=== PATIENT | male | born 1975 | race Caucasian/White ===

== ENCOUNTER 2019-05-29 10:36 | Emergency (ER) | payer SELFPAY ==
[~2019-05-29] VITALS: Ht 162.6 cm; Wt 63.5 kg
[2019-05-29 10:47] VITALS: BP 147/88
--- NOTE | 2019-05-29 11:05 | NUR ---
44 Y/O M PRESENTS TO ER C/O BURNING SENSATION TO HEAD. PER PT HE HAD BRAIN SURGERY TO REMOVE A TUMOR 5 MONTHS AGO. DENIES TRAUMA OR INJURY. DENIES N/V. PT HAS 2 SCAB WOUNDS NOTED TO RIGHT SIDE OF HEAD WITH 1/2 CM OF ERYTHEMA. PAIN LEVEL 8/10, BURNING SENSATION. HOB ELEVATED, BED IN LOWEST POSITION, BED RAIL UP X1. ERMD AT BEDSIDE ALLERGIES: NKA MED HX: DM
[2019-05-29] MEDS ORDERED: ACETAMINOPHEN 325 MG TAB PO ONE (11:10)
[2019-05-29 11:16] VITALS: BP 147/88
--- NOTE | 2019-05-29 11:16 | NUR ---
Patient discharged with v/s stable. Written and verbal after care instructions given and explained. Pt encouraged to follow up with PCP in 2 days. Pt was instructed to apply bacitracin to area 3 times a day. Patient alert, oriented and verbalized understanding of instructions. Ambulatory with steady gait. All questions addressed prior to discharge. ID band removed. Patient advised to follow up with PMD. Rx of BACITRACIN 500 UNITS WAS given. Patient educated on indication of medication including possible reaction and side effects. Opportunity to ask questions provided and answered.
== END 2019-05-29 11:06 | disposition home or self-care (01) ==
LOC: MED 10:36
DX: T81.49XA Infection following a procedure, other surgical site, initial encounter (principal); E11.8 Type 2 diabetes mellitus with unspecified complications
CPT/HCPCS: 99283

== ENCOUNTER 2019-06-11 05:07 | Inpatient (IN) | payer MEDICAID ==
[~2019-06-11] VITALS: Ht 162.6 cm; Wt 86.2 kg
[2019-06-11 05:10] VITALS: BP 145/90
--- NOTE | 2019-06-11 05:13 | NUR ---
44 Y/O M PRESENTS TO ED WITH C/O SUDDNE ONSET EPIGASTRIC PAIN X1 HOUR DIRECTOR FUNDRAISING. +NAUSEA. PT REPORTS HAVING SIMILAR PAIN IN THE PAST AND WAS TOLD BY HIS PCP TO COME TO THE ER IF THESE SYMPTOMS OCCUR AGAIN BECAUSE THE PAIN IS RELATED TO HIS DIABETES. PT STATES HE HAS NOT HAD METFORMIN IN 2 MONTHS. 9/10 SHARP AND CONSTANT PAIN, NON-RADIATING. +EPIGASTRIC TENDERNESS. BOWELS PRESENT [id number]. BEDRAIL X1 UP. FAMILY AT BEDSIDE. WILL CONTINUE TO MONITOR.
--- NOTE | 2019-06-11 05:13 | NUR ---
PT TAKEN TO BED 8
[2019-06-11] MEDS ORDERED: DICYCLOMINE HCL LIQUID 20 MG, ALUMINUM HYD/MAG/SIMETHICONE 30 ML, LIDOCAINE VISCOUS 2% ... PO ONE ×3 (05:25)
--- NOTE | 2019-06-11 05:35 | NUR ---
BLOOD DRAWN AND TAKEN TO LAB. HEMODIALYSIS CHARGE NURSE STATED TO LEAVE LABS ON THE COUNTER.
[2019-06-11 05:45] LABS: BASOPHILS # (AUTO) 0.1 K/uL (0.00-0.22); BASOPHILS % (AUTO) 0.9 % (0.0-2.0); EOSINOPHILS # (AUTO) 0.2 K/uL (0-0.4); EOSINOPHILS % (AUTO) 2.7 % (0.0-4.0); HEMOGLOBIN 17.1 g/dL (12.0-18.0); LYMPHOCYTES # (AUTO) 2.1 K/uL (2.0-11.5); LYMPHOCYTES % (AUTO) 34.4 % (20.5-51.1); MONOCYTES # (AUTO) 0.4 K/uL (0.8-1.0); MONOCYTES % (AUTO) 7.4 % (1.7-9.3); NEUTROPHILS # (AUTO) 3.3 K/uL (1.8-7.7); NEUTROPHILS % (AUTO) 54.6 % (42.2-75.2); PLATELET COUNT (AUTO) 171 K/uL (140-450); RED BLOOD CELL COUNT(AUTO) 5.41 MIL/uL (4.20-6.10)
--- NOTE | 2019-06-11 05:45 | NUR ---
PT REPORTS HAVING LAPROSCOPIC PANCREATECTOMY X1 YR AGO AND A BRAIN TUMOR REMOVAL X6 MONTHS AGO. Addendum: 06/11/19 at 0602 by [facility] PT REPORTS HAVING LAPROSCOPIC CHOLECYSTECTOMY X1 YR AGO AND A BRAIN TUMOR REMOVAL X6 MONTHS AGO.
--- NOTE | 2019-06-11 06:10 | NUR ---
PT STATES UNCHANGED PAIN. ERMD MADE AWARE.
[2019-06-11] MEDS ORDERED: KETOROLAC 30 MG/ML VIAL IM ONE (06:15)
[2019-06-11] MEDS ORDERED: ONDANSETRON 4 MG ODT PO ONE (06:15)
[2019-06-11 06:22] LABS: HEMATOCRIT 51.5 % (36-52)
[2019-06-11 06:23] LABS: MEAN CORPUSCULAR HEMOGLOBIN 30 pg (27-31); MEAN CORPUSCULAR HGB CONC 34 g/dL (33-37)
[2019-06-11 06:24] LABS: MEAN CORPUSCULAR VOLUME 88.7 fL (80-94)
[2019-06-11 06:39] LABS: ANION GAP 25.6 (8-16); CARBON DIOXIDE 14.2 mmol/L (21-32); POTASSIUM 3.8 mmol/L (3.5-5.1)
[2019-06-11 06:41] LABS: TOTAL BILIRUBIN 0.8 mg/dL (0.0-1.0)
[2019-06-11 06:42] LABS: ALBUMIN 3.8 g/dL (3.4-5.0)
[2019-06-11 06:49] LABS: CREATININE 0.5 mg/dL (0.7-1.3)
[2019-06-11] MEDS ORDERED: NACL 0.9% 2,000 ML IV ONE (07:00)
[2019-06-11] MEDS ORDERED: MORPHINE SULFATE 4 MG/ML SYR IVP ONE (07:00)
[2019-06-11] MEDS ORDERED: ONDANSETRON 4 MG/2 ML VIAL IVP ONE (07:00)
--- NOTE | 2019-06-11 07:02 | NUR ---
RT AT BEDSIDE FOR ABG
--- NOTE | 2019-06-11 07:10 | NUR ---
BEDSIDE REPORT GIVEN TO ALCIRA/CHUCK NERI. TRANSFER OF CARE AT THIS TIME.
--- NOTE | 2019-06-11 07:14 | NUR ---
MORPHINE AND ZOFRAN ADMINISTERED IVP
--- NOTE | 2019-06-11 07:19 | NUR ---
PT PLACED ON AGRICULTURE MECHANIC, VITAL SIGNS STABLE.
--- NOTE | 2019-06-11 07:19 | NUR ---
PER PT WITH MEDICAL HX OF DM, HIGH CHOLESTEROL AND PANCREATITIS
--- NOTE | 2019-06-11 07:26 | NUR ---
MORNING V/S PERFORMED AND DOCUMENTED.
[2019-06-11] MEDS ORDERED: METF500T2 PO ×2 (07:35→08:08)
--- NOTE | 2019-06-11 07:36 | NUR ---
PER PATIENT STOPPED TAKING METFORMIN FOR DM DUE TO MEDICAL INSURANCE
--- NOTE | 2019-06-11 07:41 | NUR ---
REASSESSED ALL MEDICATIONS ON EMAR, PT HAD NO NADR.
--- NOTE | 2019-06-11 08:15 | NUR ---
RESIDENTS AT BEDSIDE
[2019-06-11] MEDS: NACL 0.9% 1,000 ML IV SCH ×3 (08:26→22:27)
[2019-06-11] MEDS ORDERED: DOCUSATE SODIUM 100 MG GELCAP PO PRN (08:30)
[2019-06-11] MEDS ORDERED: HYDROcodone/APAP 5/325 MG 1 TAB TAB PO PRN (08:30)
[2019-06-11] MEDS ORDERED: ACETAMINOPHEN 325 MG TAB PO PRN (08:30)
[2019-06-11] MEDS ORDERED: LORazepam 2 MG/ML VIAL IM/IVP PRN (08:30)
[2019-06-11] MEDS ORDERED: ONDANSETRON 4 MG/2 ML VIAL IM/IVP PRN (08:30)
[2019-06-11 08:40] VITALS: BP 94/50
--- NOTE | 2019-06-11 08:40 | NUR ---
PATIENT WAS BROUGHT TO THE UNIT AT 0840, REPORT RECEIVED FROM ER NURSE. PATIENT IS IN STABLE CONDITION. ORIENTED TO THE UNIT. BED ALARM ACTIVE, CALL LIGHT IN PLACE. SKIN INTACT, OBSERVABLE CHEST RISE AND FALL. WILL CONTINUE TO MONITOR.
--- NOTE | 2019-06-11 08:50 | NUR ---
Patient will be admitted to care of [facility]. Admited to [facility]. Will go to room 125A. Belongings list completed. Report to MELISSA WOODS , NICOLE WOODS.
[2019-06-11 10:16] LABS: PROTHROMBIN TIME 9.2 secs (10.8-13.4)
[2019-06-11] MEDS ORDERED: PANTOPRAZOLE 40 MG INJ VIAL IVP SCH (10:45)
--- NOTE | 2019-06-11 11:38 | NUR ---
DISCHARGE PLANNIN44 YEAR OLD MALE PATIENT FROM HOME, CAME IN DUE TO EPIGASTRIC PAIN. PAST MEDICAL HISTORY INCLUDE PANCREATITIS, DIABETES, HIGH CHOLESTEROL AND BRAIN TUMOR S/P CRANIOTOMY. INITIAL DIAGNOSIS OF ACUTE PANCREATITIS. LIPASE 4519 ON ADMISSION. CXR SHOWED PROBABLE GRANULOMA OF THE RIGHT LUNG BASE. ON PROTONIX IV. ON ROOM AIR. DC PLAN PENDING ON PATIENT'S RESPONSE TO TREATMENT.
--- NOTE | 2019-06-11 12:09 | NUR ---
PT COMPLAINED OF NAUSEA. ADMINISTERED ZOFRAN.
--- NOTE | 2019-06-11 13:00 | NUR ---
PATIENT IS RESTING IN BED, AMBULATING OCCASIONALLY TO THE BATHROOM. IV INTACT, NS RUNNING AT 125 ML/HR. WILL CONTINUE TO MONITOR.
--- NOTE | 2019-06-11 13:41 | NUR ---
Phlebotomy Director Assessment/Discharge Plan: Name: Reena Wilks Home Relationship: sister Pre-Admission Living Arrangements: Lives with Other Other: his children and roommates Prior ADL Independent Current Home Health Name/Tel: N/A Current DME/02 Name/Tel: no blood glucose monitor Current Hospice Name/Tel: N/A Current Dialysis Name/Tel: N/A Healthcare Decision Maker: Patient Information Taught: Community Resources Person Taught: Patient Teaching Tools: Community Resources Verbal Factors Affecting Learning: None Participation Level: Active Evaluation: Gestures Understanding Verbalizes Understanding Educator: JIMBO Landers Discipline: Case Mgt/Social Svcs Tentative Discharge Plan Summary: Patient is a 44 year old male, admitte for acute pancreatitis. I met with patient at bedside. Patient alert and oriented x4. Patient speaks Sami. Patient lives at home with his children and roommates and plans to return home upon discharge. Patient does not have a pcp at this time. He moved to [place] from [place] 4 months ago. I provided patient with a list of low cost clinics. He denied alcohol/substance abuse. He also denied hx of mental health. Phlebotomy Director and/or Strap Maker will follow up as needed. Signature: JIMBO Landers Date: Jun 11, 2019
[2019-06-11] MEDS: KETOROLAC 30 MG/ML VIAL IVP PRN ×2 (15:07→21:29)
--- NOTE | 2019-06-11 15:10 | NUR ---
PAIN MEDICATION GIVEN FOR ABDOMINAL PAIN, PATIENT TOLERATED WELL. RESTING IN BED WITH EYES CLOSED. OBSERVED CHEST RISE AND FALL. WILL CONTINUE TO MONITOR.
[2019-06-11 16:00] VITALS: BP 122/81
--- NOTE | 2019-06-11 17:08 | NUR ---
RESTING IN BED, NO COMPLAINTS OF PAIN, N/S RUNNING AT 125 ML/HR. WILL CONTINUE TO MONITOR.
--- NOTE | 2019-06-11 19:31 | NUR ---
ENDORSED PT TO PM RN PT APPEARS STABLE AND IN NO APPARENT DISTRESS. ALL SAFETY MEASURES ARE IN PLACE
--- NOTE | 2019-06-11 19:32 | NUR ---
REPORT RECEIVED FROM AM NURSE AT BEDSIDE. PT IN STABLE CONDITION. AAOX4. INTRODUCED SELF TO PT. BOARD UPDATED. NO COMPLAINTS OF PAIN. NO SOB. AFEBRILE. PT IS AMBULATORY. PT IS [place]ORE[place] SPEAKING. IV SITE L AC 18G RUNNING NS@150ML/HR PATENT AND INTACT. SKIN WARM, DRY, AND INTACT WITH NO OPEN WOUNDS. BED LOCKED IN LOW POSITION. CALL WOOD WITHIN REACH. SAFETY PRECAUTION IN PLACE. ALL NEEDS MET AT THIS TIME.
[2019-06-11 20:26] LABS: MAGNESIUM 1.9 mg/dL (1.8-2.4)
--- NOTE | 2019-06-11 21:29 | NUR ---
TORADOL GIVEN FOR 7/10 ABDOMINAL PAIN. PT TOLERATED WELL.
--- NOTE | 2019-06-11 23:10 | NUR ---
PT SLEEPING COMFORTABLY IN BED. NO S/S OF DISTRESS NOTED. WILL CONTINUE TO MONITOR.
[2019-06-11 23:36] LABS: APPEARANCE,URINE CLEAR (CLEAR); BILIRUBIN,URINE NEGATIVE (NEGATIVE); BLOOD, URINE NEGATIVE (NEGATIVE); COLOR,URINE YELLOW (YELLOW); LEUKOCYTE ESTERASE ,URINE NEGATIVE (NEGATIVE); NITRITE, URINE NEGATIVE (NEGATIVE); UGLUCOSE TRACE (NEGATIVE)
[2019-06-11 23:48] LABS: RBC,URINE 0-5 /HPF (0-5); WBC,URINE 0-5 /HPF (0-5)
[2019-06-11 23:59] LABS: BARBITURATE, URINE NEG. ng/ml (NEG <=200); BENZODIAZEPINE, URINE NEG. ng/mL (NEG <=200); CANNABINOID, URINE NEG. ng/mL (NEG <=50); COCAINE, URINE NEG. ng/mL (NEG <=300); OPIATE, URINE NEG. ng/mL (NEG <=2000); PHENCYCLIDINE SCREEN,URINE NEG. ng/mL (NEG <=25)
[2019-06-12] VITALS: BP 125/75
--- NOTE | 2019-06-12 02:25 | NUR ---
PT SLEEPING COMFORTABLY BUT AROUSABLE. NO S/S OF DISTRESS NOTED. NO COMPLAINTS OF PAIN. NO SOB. AFEBRILE. WILL CONTINUE TO MONITOR.
[2019-06-12] MEDS: NACL 0.9% 1,000 ML IV SCH ×3 (04:16→18:59)
--- NOTE | 2019-06-12 04:20 | NUR ---
PT SLEEPING COMFORTABLY BUT AROUSABLE. NO S/S OF DISTRESS NOTED. RESPIRATIONS EVEN, UNLABORED, AND WNL. WILL CONTINUE TO MONITOR.
--- NOTE | 2019-06-12 06:05 | NUR ---
PT SLEEPING COMFORTABLY BUT AROUSABLE. NO S/S OF DISTRESS NOTED. NO COMPLAINTS OF PAIN. NO SOB. AFEBRILE. WILL CONTINUE TO MONITOR.
[2019-06-12 06:31] LABS: ANION GAP 12.8 (8-16); CARBON DIOXIDE 26.5 mmol/L (21-32); CREATININE 0.7 mg/dL (0.7-1.3); POTASSIUM 3.3 mmol/L (3.5-5.1)
[2019-06-12 06:49] LABS: BASOPHILS % (AUTO) 0.3 % (0.0-2.0); EOSINOPHILS # (AUTO) 0.1 K/uL (0-0.4); EOSINOPHILS % (AUTO) 1.2 % (0.0-4.0); HEMATOCRIT 42.2 % (36-52); HEMOGLOBIN 14.4 g/dL (12.0-18.0); LYMPHOCYTES % (AUTO) 10.3 % (20.5-51.1); MEAN CORPUSCULAR HEMOGLOBIN 30 pg (27-31); MEAN CORPUSCULAR HGB CONC 34 g/dL (33-37); MEAN CORPUSCULAR VOLUME 87.6 fL (80-94); MONOCYTES # (AUTO) 0.6 K/uL (0.8-1.0); MONOCYTES % (AUTO) 6.5 % (1.7-9.3); NEUTROPHILS # (AUTO) 7.6 K/uL (1.8-7.7); NEUTROPHILS % (AUTO) 81.7 % (42.2-75.2); PLATELET COUNT (AUTO) 146 K/uL (140-450); RED BLOOD CELL COUNT(AUTO) 4.81 MIL/uL (4.20-6.10); RED CELL DISTRIBUTION WIDTH 13.9 % (11.6-13.7); WHITE BLOOD COUNT (AUTO) 9.3 K/uL (4.8-10.8)
--- NOTE | 2019-06-12 06:50 | NUR ---
PT SLEEPING COMFORTABLY BUT AROUSABLE. PT IN STABLE CONDITION.
--- NOTE | 2019-06-12 07:30 | NUR ---
RECEIVED PT FROM NIGHT NURSE. AAOX4, NO DISTRESS NOTED, PT DENIES PAIN AT THIS TIME. RESPIRATIONS EVEN AND UNLABORED ON ROOM AIR, CLEAR BREATH SOUNDS. IV IN PLACE PATENT AND ASYMPTOMATIC INFUSING PER ORDER IN L AC 18G. SKIN INTACT. AMBULATORY. NPO EXCEPT MEDS. SAFETY MEASURES IN PLACE. CALL LIGHT WITHIN REACH. BED IN LOW POSITION. WILL CONTINUE TO MONITOR.
[2019-06-12 08:00] VITALS: BP 112/70
[2019-06-12] MEDS ORDERED: POTASSIUM CHLORIDE 40 MEQ, LIDOCAINE MPF 1% 25 MG in NACL 0.9% 250 ML IV SCH (08:00)
--- NOTE | 2019-06-12 08:22 | NUR ---
PATIENT HAS BEEN SCREENED AND CATEGORIZED MODERATE NUTRITION RISK. PATIENT WILL BE SEEN WITHIN 3-5 DAYS OF ADMISSION. 06/13/19 06/15/[address]
[2019-06-12] MEDS: PANTOPRAZOLE 40 MG INJ VIAL IVP SCH (09:12)
--- NOTE | 2019-06-12 09:22 | NUR ---
MEDICATIONS ADMINISTERED PER ORDER. PT TOLERATED WELL. NO DISTRESS NOTED. PT DENIES PAIN AT THIS TIME. SAFETY MEASURES IN PLACE. CALL LIGHT WITHIN REACH. WILL CONTINUE TO MONITOR.
[2019-06-12 11:40] LABS: THYROID STIMULATING HORMONE 0.9 uIU/mL (0.34-3.74)
--- NOTE | 2019-06-12 12:07 | NUR ---
PT EATING LUNCH, CLEAR LIQUID DIET. NO DISTRESS NOTED. WILL CONTINUE TO MONITOR. SAFETY MEASURES IN PLACE.
--- NOTE | 2019-06-12 14:18 | NUR ---
PT IN BED SLEEPING. NO DISTRESS NOTED. CALL LIGHT WITHIN REACH. WILL CONTINUE TO MONITOR.
[2019-06-12 16:00] VITALS: BP 119/80
--- NOTE | 2019-06-12 17:02 | NUR ---
PT IN BED ASLEEP. NO DISTRESS NOTED. BED IN LOW POSITION. CALL LIGHT WITHIN REACH. WILL CONTINUE TO MONITOR.
--- NOTE | 2019-06-12 19:10 | NUR ---
REPORT GIVEN TO NIGHT NURSE FOR CONTINUITY OF CARE.
--- NOTE | 2019-06-12 19:11 | NUR ---
REPORT RECEIVED FROM AM NURSE AT BEDSIDE. PT IN STABLE CONDITION. AAOX4. INTRODUCED SELF TO PT. BOARD UPDATED. NO COMPLAINTS OF PAIN. NO SOB.A FEBRILE. PT IS AMBULATORY. PT IS MALAWIAN SPEAKING. IV SITE L AC 18G RUNNING NS@150ML/HR PATENT AND INTACT. SKIN WARM, DRY, AND INTACT WITH NO OPEN WOUNDS. BED LOCKED IN LOW POSITION. CALL WOOD WITHIN REACH. SAFETY PRECAUTION IN PLACE. ALL NEEDS MET AT THIS TIME.
--- NOTE | 2019-06-12 20:15 | NUR ---
LIPITOR GIVEN PO. PT TOLERATED WELL.
[2019-06-12] MEDS ORDERED: ATORVASTATIN 20 MG TAB PO SCH (21:00)
--- NOTE | 2019-06-12 22:20 | NUR ---
PT SLEEPING COMFORTABLY BUT AROUSABLE. NO S/S OF DISTRESS NOTED. WILL CONTINUE TO MONITOR.
[2019-06-13] VITALS: BP 112/73
--- NOTE | 2019-06-13 00:30 | NUR ---
PT SLEEPING COMFORTABLY BUT AROUSABLE. NO S/S OF DISTRESS NOTED. RESPIRATIONS EVEN, UNLABORED, AND WNL. WILL CONTINUE TO MONITOR.
[2019-06-13] MEDS: NACL 0.9% 1,000 ML IV SCH ×2 (02:29→09:23)
--- NOTE | 2019-06-13 02:43 | NUR ---
PT SLEEPING COMFORTABLY BUT AROUSABLE. NO S/S OF DISTRESS NOTED. NO COMPLAINTS OF PAIN. NO SOB. AFEBRILE. WILL CONTINUE TO MONITOR.
--- NOTE | 2019-06-13 04:35 | NUR ---
PT SLEEPING COMFORTABLY BUT AROUSABLE. NO S/S OF DISTRESS NOTED. WILL CONTINUE TO MONITOR.
[2019-06-13 06:02] LABS: ANION GAP 11.6 (8-16); CARBON DIOXIDE 29.2 mmol/L (21-32); CREATININE 0.8 mg/dL (0.7-1.3); POTASSIUM 3.8 mmol/L (3.5-5.1)
[2019-06-13 06:20] LABS: BASOPHILS % (AUTO) 0.4 % (0.0-2.0); EOSINOPHILS # (AUTO) 0.2 K/uL (0-0.4); EOSINOPHILS % (AUTO) 4.3 % (0.0-4.0); HEMATOCRIT 39.9 % (36-52); HEMOGLOBIN 13.4 g/dL (12.0-18.0); LYMPHOCYTES # (AUTO) 1.5 K/uL (2.0-11.5); LYMPHOCYTES % (AUTO) 27.9 % (20.5-51.1); MEAN CORPUSCULAR HEMOGLOBIN 30 pg (27-31); MEAN CORPUSCULAR HGB CONC 34 g/dL (33-37); MEAN CORPUSCULAR VOLUME 88.8 fL (80-94); MONOCYTES # (AUTO) 0.4 K/uL (0.8-1.0); MONOCYTES % (AUTO) 8.3 % (1.7-9.3); NEUTROPHILS # (AUTO) 3.2 K/uL (1.8-7.7); NEUTROPHILS % (AUTO) 59.1 % (42.2-75.2); PLATELET COUNT (AUTO) 138 K/uL (140-450); RED BLOOD CELL COUNT(AUTO) 4.49 MIL/uL (4.20-6.10); WHITE BLOOD COUNT (AUTO) 5.4 K/uL (4.8-10.8)
--- NOTE | 2019-06-13 06:40 | NUR ---
PT SLEEPING COMFORTABLY BUT AROUSABLE. PT IN STABLE CONDITION.
--- NOTE | 2019-06-13 07:10 | NUR ---
RECEIVED REPORT FROM NIGHT NURSE. PT IN BED WITH EYES CLOSED AROUSABLE TO SPEECH, AAOX4, DENIES PAIN, NO DISTRESS NOTED. RESPIRATIONS EVEN AND UNLABORED ON ROOM AIR, CLEAR BREATH SOUNDS. IV IN PLACE PATENT AND ASYMPTOMATIC IN L AC 18G INFUSING PER ORDER. SKIN INTACT. BED IN LOW POSITION, CALL LIGHT WITHIN REACH. SAFETY MEASURES IN PLACE. WILL CONTINUE TO MONITOR.
[2019-06-13] MEDS ORDERED: METF500T2 PO (08:35)
[2019-06-13] MEDS ORDERED: [UNRECOGNIZED DRUG - CODE] PO (08:35)
[2019-06-13] MEDS ORDERED: ATOR40TA40 PO (08:35)
[2019-06-13] MEDS ORDERED: NIACIN 500 MG TAB PO SCH (09:00)
[2019-06-13] MEDS: PANTOPRAZOLE 40 MG INJ VIAL IVP SCH (09:22)
--- NOTE | 2019-06-13 09:27 | NUR ---
MEDICATIONS ADMINISTERED PER ORDER. PT TOLERATED WELL. NO DISTRESS NOTED. WILL CONTINUE TO MONITOR.
[2019-06-13 09:51] VITALS: BP 131/78
[2019-06-13] MEDS ORDERED: INFLUENZA VACCINE QUAD 0.5 ML SYR IMVAC PRN (10:30)
--- NOTE | 2019-06-13 11:00 | NUR ---
PT DISCHARGED HOME AT THIS TIME. DISCHARGE, FOLLOWUP AND MEDICATION TEACHING GIVEN, PT VERBALIZE UNDERSTANDING. DISCHARGE PAPERWORK GIVEN AND SIGNED BY PT. FLU VACCINE GIVEN UPON DISCHARGE, PNA NOT APPLICABLE. IV SITE REMOVED WITH MINIMAL BLOOD LOSS AND LUMEN INTACT. ID BANDS REMOVED. RESPIRATIONS EVEN AND UNLABORED ON ROOM AIR, CLEAR BREATH SOUNDS. PT DENIES PAIN. SKIN INTACT. PT ESCORTED OFF THE UNIT ON FOOT AND LEFT IN PRIVATE VEHICLE ACCOMPANIED BY SISTER.
== END 2019-06-13 11:00 | disposition home or self-care (01) | DRG 282 ==
LOC: MED 05:07 → MMU 08:30
PROVIDERS: ADMIT General Practice; ATTEND General Practice
DX: K85.90 Acute pancreatitis without necrosis or infection, unspecified (principal); K65.9 Peritonitis, unspecified; K76.0 Fatty (change of) liver, not elsewhere classified; E87.1 Hypo-osmolality and hyponatremia; E66.9 Obesity, unspecified; E11.9 Type 2 diabetes mellitus without complications; E78.00 Pure hypercholesterolemia, unspecified; E78.5 Hyperlipidemia, unspecified; E11.65 Type 2 diabetes mellitus with hyperglycemia; E87.6 Hypokalemia; E78.1 Pure hyperglyceridemia; Z91.19 Patient's noncompliance with other medical treatment and regimen; Z68.32 Body mass index [BMI] 32.0-32.9, adult; Z90.49 Acquired absence of other specified parts of digestive tract
CPT/HCPCS: 36415; 36600; 71045; 80048; 80053; 80061; 80305; 81001; 82803; 82948; 83036; 83615; 83625; 83690; 83735; 84100; 84443; 85025; 85610; 85730; 87081; 93005; 96372; 96374; 96375; 99285; C9113; J1885; J2001; J2270; J2405; J3480; J7030; Q0092; Q0162; Q9967

== ENCOUNTER 2020-01-21 14:33 | Emergency (ER) | payer MEDICAID, OTHER ==
[~2020-01-21] VITALS: Ht 170.2 cm; Wt 81.6 kg
[~2020-01-21 14:33] MED LIST: ATOR40TA40 PO; METF500T2 PO; [UNRECOGNIZED DRUG - CODE] PO
[2020-01-21 14:41] VITALS: BP 121/76
--- NOTE | 2020-01-21 15:00 | NUR ---
PATIENT LEFT WITHOUT BEING SEEN BY DR. JHAVERI . NO FURTHER CARE PROVIDED FOR PATIENT.
== END 2020-01-21 15:00 | disposition left against medical advice (07) ==
LOC: MED 14:33
DX: M79.606 Pain in leg, unspecified (principal); E11.9 Type 2 diabetes mellitus without complications; Z79.84 Long term (current) use of oral hypoglycemic drugs; Z79.899 Other long term (current) drug therapy; Z53.21 Procedure and treatment not carried out due to patient leaving prior to being seen by health care provider

== ENCOUNTER 2020-05-22 14:18 | Emergency (ER) | payer OTHER ==
[~2020-05-22] VITALS: Ht 167.6 cm; Wt 85.7 kg
--- NOTE | 2020-05-22 14:18 | NUR ---
Troy wright in [facility] - 05/22/20 at 1422 by YURI BIBA TAKEN TO BED 5
--- NOTE | 2020-05-22 15:42 | NUR ---
PT TAKEN TO BED 11.
[2020-05-22 15:46] VITALS: BP 111/76
--- NOTE | 2020-05-22 15:49 | NUR ---
45 y/o A&OX4 male c/o Full body numbness. Pressure to chest rated 4/10. PT states he called [facility] earlier today and wa told to come to the ER to be evaluated. Sensory and motor function present in all extremities, able to ambulate. PMH: DM, HLD RX: Metformin, lisinopril, atorvastatin, glipizide. NKA
[2020-05-22] MEDS ORDERED: ASPIRIN 81 MG TAB.CHEW PO ONE (16:05)
--- NOTE | 2020-05-22 16:14 | NUR ---
EMT at bedside for Chest XR
--- NOTE | 2020-05-22 16:20 | NUR ---
XR at pt bedside.
[2020-05-22 16:21] LABS: BASOPHILS % (AUTO) 0.4 % (0.0-2.0); EOSINOPHILS # (AUTO) 0.1 K/uL (0-0.4); EOSINOPHILS % (AUTO) 1.8 % (0.0-4.0); HEMATOCRIT 42.5 % (36-52); HEMOGLOBIN 14.5 g/dL (12.0-18.0); LYMPHOCYTES # (AUTO) 2.4 K/uL (2.0-11.5); LYMPHOCYTES % (AUTO) 31.9 % (20.5-51.1); MEAN CORPUSCULAR HEMOGLOBIN 30 pg (27-31); MEAN CORPUSCULAR HGB CONC 34 g/dL (33-37); MEAN CORPUSCULAR VOLUME 87.6 fL (80-94); MONOCYTES # (AUTO) 0.6 K/uL (0.8-1.0); MONOCYTES % (AUTO) 7.9 % (1.7-9.3); NEUTROPHILS # (AUTO) 4.4 K/uL (1.8-7.7); PLATELET COUNT (AUTO) 184 K/uL (140-450); RED BLOOD CELL COUNT(AUTO) 4.85 MIL/uL (4.20-6.10); RED CELL DISTRIBUTION WIDTH 13.1 % (11.6-13.7); WHITE BLOOD COUNT (AUTO) 7.6 K/uL (4.8-10.8)
[2020-05-22 16:35] LABS: ALBUMIN 3.9 g/dL (3.4-5.0); ANION GAP 13.9 (8-16); CARBON DIOXIDE 26.5 mmol/L (21-32); CREATININE 0.8 mg/dL (0.6-1.3); POTASSIUM 3.4 mmol/L (3.5-5.1); TOTAL BILIRUBIN 0.4 mg/dL (0.0-1.0)
--- NOTE | 2020-05-22 17:29 | NUR ---
Pt repositoned for comfort, VSS, elaine continue to monitor.
[2020-05-22 18:06] VITALS: BP 116/72
--- NOTE | 2020-05-22 18:06 | NUR ---
Patient discharged with v/s stable. Written and verbal after care instructions given and explained. Patient verbalized understanding. Ambulatory with steady gait. All questions addressed prior to discharge. Advised to follow up with PMD.
== END 2020-05-22 18:06 | disposition home or self-care (01) ==
LOC: MED 14:18
DX: R07.9 Chest pain, unspecified (principal); E11.9 Type 2 diabetes mellitus without complications; E78.5 Hyperlipidemia, unspecified; I10 Essential (primary) hypertension; Z90.49 Acquired absence of other specified parts of digestive tract; Z79.899 Other long term (current) drug therapy
CPT/HCPCS: 36415; 71045; 80053; 84484; 85025; 93005; 99285; Q0092; 96361

== ENCOUNTER 2020-07-20 12:18 | Inpatient (IN) | payer OTHER ==
[~2020-07-20] VITALS: Ht 167.6 cm; Wt 80.7 kg
[2020-07-20 12:44] VITALS: BP 124/85
--- NOTE | 2020-07-20 12:48 | NUR ---
Patient ambulated to lobby with steady gait
[2020-07-20] MEDS ORDERED: DICYCLOMINE HCL LIQUID 20 MG, ALUMINUM HYD/MAG/SIMETHICONE 30 ML, LIDOCAINE VISCOUS 2% ... PO ONE ×3 (13:30)
[2020-07-20] MEDS ORDERED: DICYCLOMINE HCL LIQUID 10 MG/5 ML UDC ONE (14:15)
[2020-07-20] MEDS ORDERED: ALUMINUM HYD/MAG/SIMETHICONE 30 ML UDC ONE (14:15)
[2020-07-20] MEDS ORDERED: LIDOCAINE VISCOUS 2% 20 ML UDC ONE (14:15)
[2020-07-20 14:23] LABS: BASOPHILS # (AUTO) 0.1 K/uL (0.00-0.22); BASOPHILS % (AUTO) 0.6 % (0.0-2.0); EOSINOPHILS # (AUTO) 0.1 K/uL (0-0.4); EOSINOPHILS % (AUTO) 0.5 % (0.0-4.0); HEMATOCRIT 45.4 % (36-52); HEMOGLOBIN 16.6 g/dL (12.0-18.0); LYMPHOCYTES # (AUTO) 1.1 K/uL (2.0-11.5); LYMPHOCYTES % (AUTO) 10.1 % (20.5-51.1); MEAN CORPUSCULAR HEMOGLOBIN 32 pg (27-31); MEAN CORPUSCULAR HGB CONC 37 g/dL (33-37); MEAN CORPUSCULAR VOLUME 85.9 fL (80-94); MONOCYTES # (AUTO) 0.4 K/uL (0.8-1.0); NEUTROPHILS # (AUTO) 9.5 K/uL (1.8-7.7); NEUTROPHILS % (AUTO) 84.8 % (42.2-75.2); PLATELET COUNT (AUTO) 189 K/uL (140-450); RED BLOOD CELL COUNT(AUTO) 5.29 MIL/uL (4.20-6.10); WHITE BLOOD COUNT (AUTO) 11.2 K/uL (4.8-10.8)
[2020-07-20] MEDS ORDERED: KETOROLAC 60 MG/2 ML VIAL IM ONE (15:55)
[2020-07-20 16:25] LABS: APPEARANCE,URINE CLEAR (CLEAR); BILIRUBIN,URINE NEGATIVE (NEGATIVE); BLOOD, URINE NEGATIVE (NEGATIVE); COLOR,URINE YELLOW (YELLOW); LEUKOCYTE ESTERASE ,URINE NEGATIVE (NEGATIVE); NITRITE, URINE NEGATIVE (NEGATIVE); PH,URINE 6.5 (5.0-9.0); UGLUCOSE 3+ (NEGATIVE)
[2020-07-20] MEDS ORDERED: HYDROcodone/APAP 5/325 MG 1 TAB TAB PO ONE (17:15)
[2020-07-20] MEDS ORDERED: NACL 0.9% 1,000 ML IV ONE (18:15)
--- NOTE | 2020-07-20 20:19 | NUR ---
S/W ANGEL KRUSE TECH WHO STATED BLOOD WORK WAS SENT TO LAB [facility] DUE TO THE BLOOD BEING LIPEMIC. LISA LOVE MADE AWARE.
[2020-07-20] MEDS ORDERED: HYDROcodone/APAP 5/325 MG 1 TAB TAB ONE (20:31)
--- NOTE | 2020-07-20 21:21 | NUR ---
PT TAKEN TO CHAIR A
[2020-07-20] MEDS ORDERED: ONDANSETRON 4 MG/2 ML VIAL IVP ONE (21:50)
[2020-07-20] MEDS ORDERED: MORPHINE SULFATE 4 MG/ML SYR IVP ONE (21:50)
--- NOTE | 2020-07-20 22:23 | NUR ---
PT BLOOD REDRAWN AND TAKEN TO LAB
--- NOTE | 2020-07-20 22:40 | NUR ---
RECEIVED REPORT FROM CHUCK LIN FOR CONTINUATION OF CARE AT THIS TIME.
--- NOTE | 2020-07-20 22:40 | NUR ---
PT IS SITTING UPRIGHT IN CHAIR. VISIBLE RISE AND FALL OF CHEST NOTED. NO VISIBLE DISTRES AT THIS TIME. WILL CONTINUE TO MONITOR.
--- NOTE | 2020-07-20 22:40 | NUR ---
45 Y/O MALE C/O 8/10 SHARP ABD PAIN X1 DAY, + N/V. DENIES DIARRHEA. ABD IS TENDER TO PALPATION. PT IS MILDY DISTENDED. BOWEL SOUNDS ACTIVEX4 QUADRANTS. PT IS A/OX4. +2 PULSES THROUGHOUT. CLEAR LUNG SOUNDS THROUGHOUT. PT IS NOT IN ANY DISTRESS AT THIS TIME. PT DENIES TAKING ANY PAIN MEDICATION. PMH: DM, HTN NKA
[2020-07-20] MEDS ORDERED: ONDANSETRON 4 MG/2 ML VIAL ONE (22:53)
[2020-07-20] MEDS ORDERED: MORPHINE SULFATE 5 MG/ML VIAL ONE (22:54)
--- NOTE | 2020-07-20 23:00 | NUR ---
PROVIDED PT WITH ICE CHIPS--PER ERMD OKAY TO GIVE ICE CHIPS BUT KEEP NPO EXCEPT MEDS.
--- NOTE | 2020-07-21 00:30 | NUR ---
PT IS SITTING IN CHAIR, PT IS ASLEEP. VISIBLE RISE AND FALL OF CHEST NOTED. NO VISIBLE DISTRESS AT THIS TIME. WILL CONTINUE TO MONITOR.
--- NOTE | 2020-07-21 02:00 | NUR ---
Spoke with Apple the shoe caser at [employer] to give her a report for why the pt is here.
--- NOTE | 2020-07-21 02:45 | NUR ---
PT IS SITTING IN CHAIR IN THE HALLWAY. VISIBLE RISE AND FALL OF CHEST NOTED. IV FLUIDS RUNNING AT 80 ML/HR PER MD ORDERS. NO VISIBLE DISTRESS AT THIS TIME. WILL CONTINUE TO MONITOR.
[2020-07-21] MEDS ORDERED: HYDROcodone/APAP 5/325 MG 1 TAB TAB PO PRN (03:25)
[2020-07-21] MEDS ORDERED: KCL 20 MEQ/WATER INJ PREMIX 200 ML IV PRN (03:25)
[2020-07-21] MEDS ORDERED: MAG SULF 2000 MG/WATER PREMIX 50 ML IV PRN (03:25)
[2020-07-21] MEDS ORDERED: METOCLOPRAMIDE 10 MG/2 ML INJ VIAL IVP PRN (03:25)
[2020-07-21] MEDS ORDERED: MORPHINE SULFATE 4 MG/ML SYR IVP PRN (03:25)
[2020-07-21] MEDS ORDERED: ACETAMINOPHEN 325 MG TAB PO PRN (03:25)
[2020-07-21 03:56] LABS: BARBITURATE, URINE NEGATIVE ng/ml (NEG <=200); BENZODIAZEPINE, URINE NEGATIVE ng/mL (NEG <=200); CANNABINOID, URINE NEGATIVE ng/mL (NEG <=50); COCAINE, URINE NEGATIVE ng/mL (NEG <=300); OPIATE, URINE NEGATIVE ng/mL (NEG <=2000); PHENCYCLIDINE SCREEN,URINE NEGATIVE ng/mL (NEG <=25)
--- NOTE | 2020-07-21 04:50 | NUR ---
PT IS ASLEEP IN CHAIR IN THE HALLWAY. VISIBLE RISE AND FALL OF CHEST NOTED. IV FLUIDS RUNNING AT 80 ML/HR PER MD ORDERS. NO VISIBLE DISTRESS AT THIS TIME. WILL CONTINUE TO MONITOR.
[2020-07-21] MEDS: NACL 0.9% 1,000 ML IV SCH ×2 (04:55→15:25)
--- NOTE | 2020-07-21 06:53 | NUR ---
PATIENT HAS BEEN SCREENED AND CATEGORIZED MODERATE NUTRITION RISK. PATIENT WILL BE SEEN WITHIN 3-5 DAYS OF ADMISSION. 07/24/20 - 07/26/20 N[address] MBA, RD
--- NOTE | 2020-07-21 08:15 | NUR ---
GAVE REPORT TO CHUCK HEIN FOR TRANSFER OF CARE AT THIS TIME.
--- NOTE | 2020-07-21 08:20 | NUR ---
RECEIVED ENDORSEMENT FROM AUTOMOTIVE SERVICE TECHNICIAN, SITTING ON THE CHAIR, AWAKE, ALERT, ORIENTEDX4, BREATHING SPONTANEOUSLY AT ROOM AIR, NOT IN DISTRESS, ADMITTED A CASE OF ABDOMINAL PAIN AWAITING FOR BED IN THE MED/SURG FLOOR. WITH IV CANNULA G 20 AT RT AC ON SALINE LOCK.SAFETY MEASURES IN PLACE AND CONTINUE MONITOR
[2020-07-21 09:00] VITALS: BP 120/77
[2020-07-21] MEDS ORDERED: DOCUSATE SODIUM 100 MG GELCAP PO SCH (09:00)
--- NOTE | 2020-07-21 09:31 | NUR ---
DUE MEDICATION GIVEN
--- NOTE | 2020-07-21 11:11 | NUR ---
SOCIAL WORK NOTE: Patient's Orientation Unable To Assess Information Provided By SAM AHMADI - SISTER Comments SW WAS UNABLE TO MEET PATIENT AT BEDSIDE. SW COMPLETED ASSESSMENT WITH PATIENT'S SISTER. SW USED REFRACTORY MIXER [employer]ON [id number]. Guardian Family Member, Realtionship and Phone Number SAM RIBEIRO [phone] Healthcare Power of Plasma Processor No Does Patient Have a POLST No Identifying Problems No Social Work Triggers Is A Social Work Consult Needed No Mandate Report Filed No Explanation Of Identifying Problems PATIENT IS A 45-YEAR- OLD MALE ADMITTED FOR ABDOMINAL PAIN. PATIENT HAS PMHX OF DIABETES AND HEART DISEASE. Admitted From Home Pre-Admission Level Of Functioning Status Independent/Ambulatory Prior Resources/Services Used In Last 12 Months No Prior Resources Used Prior DME No Prior DME Used Dialysis Comments N/A Living Situation Apartment Lives With Family Patient Had Caregiver No Home Support No Caregiver Issues Financial Issues No Known Financial Issue Referral To The Financial Counselor Needed No Factors/Needs No D/C Needs Identified Pt/Rep Participated In Discharge Plan Yes Patient/Family Agress With Discharge Plan Yes Discharge Plan Comments TENTATIVE DISCHARGE PLAN IS FOR PATIENT TO RETURN HOME. DC Plan Status Initiated
--- NOTE | 2020-07-21 12:11 | NUR ---
STILL SITTING ON CHAIR, NOT IN DISTRESS NOTED
[2020-07-21 13:00] VITALS: BP 122/75
--- NOTE | 2020-07-21 15:31 | NUR ---
STILL NPO EXCEPT MEDS, IV FLUID 0.9% NS AT 80ML/HOUR STARTED AT RT AC, G20 IV CANNULA, PATENT
[2020-07-21 17:00] VITALS: BP 106/77
--- NOTE | 2020-07-21 17:01 | NUR ---
VITAL SIGNS TAKEN AND RECORDED, STABLE
--- NOTE | 2020-07-21 18:45 | NUR ---
DR. CABRAL MADE ROUNDS, ORDERED TO GIVE SOME FOOD FOR THE PATIENT, IF TOLERATED POSSIBLE DISCHARGE TONIGHT. PUDDING AND JELLO OFFERED, ABLE TO EAT WITHOUT VOMITING, DENIES ABDOMINAL PAIN NOTED
--- NOTE | 2020-07-21 19:25 | NUR ---
ENDORSED TO FLATBED PRESS OPERATOR IN STABLE CONDITION FOR CONTINUITY OF CARE
--- NOTE | 2020-07-21 20:15 | NUR ---
SITTING IN CHAIR, AWAKE AND ALERT. DENIES ABDOMINAL PAIN AT THIS TIME. DIET TRAY SERVED.
--- NOTE | 2020-07-21 20:45 | NUR ---
TOLERATED DIET TRAY WELL. CONTINUES TO DENY ABDOMINAL PAIN
--- NOTE | 2020-07-21 21:05 | NUR ---
S/W DR. GOMEZ TO INFORM HIM THAT PT HAS TOLERATED MEAL WITH NO CONTINUED ABDOMINAL PAIN AFTER [address] GOMEZ STATED HE WOULD PLACE DISCHARGE ORDER.
--- NOTE | 2020-07-21 21:50 | NUR ---
IV removed, catheter intact and site benign. Applied folded 4x4 gauze and tape to stop bleeding.
--- NOTE | 2020-07-21 21:55 | NUR ---
PT DISCHARGED HOME IN STABLE CONDITION PER DR. GOMEZ ORDER. PT GIVEN RX OF CIPRO. PT EDUCATED ON MEDICATION ADMINISTRATION AND SIDE EFFECTS. ALL QUESTIONS ASKED AND ANSWERED.
== END 2020-07-21 21:55 | disposition home or self-care (01) ==
LOC: MED 12:18 → MMU 07-21 04:02
PROVIDERS: ADMIT Hospitalist; ATTEND Hospitalist
DX: K80.20 Calculus of gallbladder without cholecystitis without obstruction (principal); E11.9 Type 2 diabetes mellitus without complications; E78.5 Hyperlipidemia, unspecified; Z79.84 Long term (current) use of oral hypoglycemic drugs; Z90.49 Acquired absence of other specified parts of digestive tract
CPT/HCPCS: 36415; 76700; 80053; 80305; 81003; 83690; 84484; 85025; 93005; 96361; 96372; 96374; 96375; 99285; J1644; J1885; J2405